=== PATIENT | male | born 1960 | race Caucasian/White ===

== ENCOUNTER 2023-01-28 12:13 | Outpatient (AMB) | payer OTHER, SELFPAY ==
--- NOTE | 2023-01-28 14:35 | MHC.OFFWIV ---
Intake Vital Signs 01/28/23 14:36 Height 6 ft 2 in Weight 240 lb 8 oz BMI 30.9 BP 126/74 Blood Pressure Location Rt brachial Position Sitting Pulse 86 Pulse Source Pulse Oximeter Temp 98.0 F Temp Source Temporal Artery Scan Pulse Oximetry (%) 97 Oxygen Delivery Method Room Air Intake Visit Reasons: EST/upper resp issues/[phone] Intake Note: pt is here for c/o upper resp issues over a week Patient Tobacco Use Status: Never used Tobacco Allergies No Known Allergies Allergy (Verified 01/28/23 14:48) Medication List - Last Reconciled 01/28/23 by Anand Crawford MD No Known Home Meds Do you need a note to return to daycare/school/sports/work: Yes HPI EST/upper resp issues/[phone] HPI Details Patient presents for a sick visit. Reporting symptoms of sinus congestion, sore throat and difficulty swallowing. Low-grade fever. No family member is sick. No recent travel. Patient reports symptoms of malaise and fatigue. PFSH Social History Patient Tobacco Use Status: Never used Tobacco Physical Exam Vital Signs: Last Vital Signs Temp 98.0 F 01/28/23 14:36 Pulse 86 01/28/23 14:36 BP 126/74 01/28/23 14:36 Pulse Ox 97 01/28/23 14:36 Oxygen Delivery Method Room Air 01/28/23 14:36 BMI result Body Mass Index 30.9 Const General: cooperative and healthy appearing Nutritional Appearance: well nourished Orientation/consciousness: patient oriented x3 Limitations: no limitations HEENT Head: Yes normal to inspection Eyes General: appearance normal, both eyes and all related structures Neck Neck: Yes normal visual inspection Chest Chest palpation & inspection: normal palpation of entire chest wall Resp Effort & Inspection: normal respiratory effort Neuro General: patient oriented x3 Assessment & Plan Assessment & Plan (1) Upper respiratory tract infection: Code(s): J06.9 - Acute upper respiratory infection, unspecified Plan: Antibiotics ordered. Increase fluid intake. Tylenol for aches and pains. If symptoms worsen, follow-up here for a recheck. Coding Level of Care Code Est Pt Level 3 (11051) Diagnoses Upper respiratory tract infection J06.9
[2023-01-28 14:36] VITALS: BP 126/74; PULSE 86; TEMP 36.7; O2SAT 97; BMI 30.9
== END 2023-01-28 15:07 | disposition home or self-care (01) ==
PROVIDERS: PCP Internal Medicine; Visit Provider Internal Medicine
DX: J06.9 Acute upper respiratory infection, unspecified (principal)
CPT/HCPCS: 99213